=== PATIENT | female | born 1990 | race Caucasian/White ===

== ENCOUNTER → 2020-02-23 14:22 | Outpatient (CLI) | payer BC, SELFPAY ==
--- NOTE | ~2020-02-23 | US_ITS ---
EXAMINATION: US OB <= 14 weeks fetus DATE: 02/23/2020 14:46 INDICATION: First trimester dating TECHNIQUE: Real-time pelvic transabdominal and transvaginal ultrasound was performed. COMPARISON: None. FINDINGS: The uterus measures 11.4 x 6.9 x 6.9 cm. There is an intrauterine gestational sac. A yolk sac is identified. heart motion is identified measuring 175 beats per minute (bpm) by M-mode Do ppler. The crown rump length measures 2.7 cm , which correlates with an estimated gestational a ge of 9 weeks and 4 day(s) (+/-) 6 day(s). The ovaries are not visualized however no adnexal abnormality is seen. There is no free fluid in the pelvis. IMPRESSION: 1. Live intrauterine with an estimated gestational age of 9 weeks and 4 day(s) (+/-) 6 day( s) and an estimated delivery date of 09/23/2020. Reviewed, dictated and finalized at location B. IMPRESSION: 1. Live intrauterine with an estimated gestational age of 9 weeks and 4 day(s) (+/-) 6 day(s) and an estimated delivery date of 09/23/2020.
== END ==
PROVIDERS: Visit Provider Obstetrics & Gynecology Gynecology
DX: Z36.87 Encounter for antenatal screening for uncertain dates (principal); Z3A.09 9 weeks gestation of pregnancy
CPT/HCPCS: 76801

== ENCOUNTER → 2020-04-10 09:49 | Outpatient (CLI) | payer BC, SELFPAY ==
--- NOTE | ~2020-04-10 | US_ITS ---
EXAMINATION: US OB >= 14 weeks Fetus DATE: 04/10/2020 10:15 INDICATION: Assess anatomy during second trimester . TECHNIQUE: Real-time pelvic ultrasound was performed. The interpreting radiologist was not present fo r the study. COMPARISON: 02/23/2020 FINDINGS: There is a single living fetus in vertex presentation. The placenta is posterior. Amniotic fluid vol ume is subjectively normal. heart rate of 152 beats per minute. The following anatomy was identified as normal: Ventricles, choroid plexus, falx and cava septum pellucidum Cerebellum and cisterna magna Nuchal fold Upper lip Spine Diaphragm Stomach Bladder 3 vessel cord and cord insertion Bilateral upper and lower extremities including hands and feet The kidneys and heart are suboptimally visualized with insufficient clarity for assessment. The following biometric data were obtained: BPD: 3.4 cm -> 16 weeks 3 days Head circumference: 12.5 cm -> 16 weeks 2 days Abdominal circumference: 10.9 cm -> 16 weeks 6 days Femur length: 2.0 cm -> 15 weeks 5 days These measurements are concordant. Head circumference to abdominal circumference ratio: 1.14 (normal range 1.06-1.32). Estimated weight: 154 g (+/-) 23 g. or 5 oz. (+/-) 1 oz. IMPRESSION: 1. Single living fetus with variable presentation with heart rate of 152 bpm. 2. Estimated weight is 46th percentile by Hadlock criteria when 09/23/2020 is used as the IMAN b ased upon earliest ultrasound performed at this institution on 02/23/2020. Please correlate with clini cheli information or earlier ultrasounds for most accurate IMAN. 3. Suboptimally visualized heart and kidneys, insufficient for diagnostic assessment. Otherwise chana l survey. Reviewed, dictated and finalized at location B. IMPRESSION: 1. Single living fetus with variable presentation with heart rate of 152 bpm. 2. Estimated weight is 46th percentile by Hadlock criteria when 1 is used as the IMAN based upon earliest ultrasound performed at this instituti on on 02/23/2020. Please correlate with clinical information or earlier ultrasou nds for most accurate IMAN. 3. Suboptimally visualized heart and kidneys, insufficient for diagnostic asses sment. Otherwise normal survey.
== END ==
PROVIDERS: Visit Provider Nurse Practitioner
DX: Z36.9 Encounter for antenatal screening, unspecified (principal); Z3A.00 Weeks of gestation of pregnancy not specified
CPT/HCPCS: 76805

== ENCOUNTER → 2020-05-08 14:25 | Outpatient (CLI) | payer BC, SELFPAY ==
--- NOTE | ~2020-05-08 | US_ITS ---
EXAMINATION: US OB follow up DATE: 05/08/2020 15:03 INDICATION: Follow-up for nonvisualized anatomy TECHNIQUE: Real-time ultrasound of the pelvis was performed. The interpreting radiologist was not pre sent for the study. COMPARISON: None. FINDINGS: There is a single living fetus in transverse lie with head to maternal right. The placenta is labor contract analyst ior with caudal margin 4.3 cm from the internal cervical os. heart rate is 148 beats per minute (bpm). The amniotic fluid volume is subjectively normal. The heart and kidneys which were previously not diagnostically visualized are normal. The following biometric data were obtained: BPD: 4.8 cm -> 20 weeks 3 days Head circumference: 17.6 cm -> 20 weeks 1 days Abdominal circumference: 16.5 cm -> 21 weeks 4 days Femur length: 3.1 cm -> 19 weeks 5 days These measurements are concordant. Head circumference to abdominal circumference ratio: 1.07 (normal range 1.07-1.25). Estimated weight: 365 g (+/-) 55 g. or 13 oz. (+/-) 2 oz. IMPRESSION: 1. Single living fetus in transverse lie with heart rate of 148 bpm. 2. Heart and kidneys are normal. 3. Estimated weight is 64th percentile by Hadlock criteria when 09/23/2020 is used as the estima lauri date of delivery (IMAN). Please correlate with clinical information or earlier ultrasounds for mos t accurate IMAN. Reviewed, dictated and finalized at [facility]. GED CARE MANAGER IMPRESSION: 1. Single living fetus in transverse lie with heart rate of 148 bpm. 2. Heart and kidneys are normal. 3. Estimated weight is 64th percentile by Hadlock criteria when 09/23/2020 is used as the estimated date of delivery (IMAN). Please correlate with clinica l information or earlier ultrasounds for most accurate IMAN.
== END ==
PROVIDERS: Visit Provider Nurse Practitioner
DX: Z36.2 Encounter for other antenatal screening follow-up (principal); Z3A.00 Weeks of gestation of pregnancy not specified
CPT/HCPCS: 76816

== ENCOUNTER 2020-09-16 05:06 | Inpatient (IN) | payer OTHER, SELFPAY ==
[2020-09-16] VITALS (168 sets, daily range): BP systolic 102–157; BP diastolic 60–112; PULSE 48–209; RESP 18; TEMP 36.3–37.3; O2SAT 76–100; BMI 25.9
[2020-09-16 06:47] LABS: Basophils Percent Auto 0.3 % (0.2-1.2); Eosinophils Absolute Auto 0.1 K/mm3 (0-0.3); Eosinophils Percent Auto 1.7 % (0-4.4); Hemoglobin 12.4 g/dL (12.0-15.0); Immature Granulocyte Absolute 0.03 K/mm3 (0.00-0.031); Immature Granulocyte Percent A 0.4 % (0-0.5); Lymphocytes Absolute Auto 1.95 K/mm3 (0.9-3.2); Lymphocytes Percent Auto 25.7 % (18.3-44.2); Mean Corpuscular HGB Conc 34.4 g/dl (32-36); Mean Corpuscular Hemoglobin 30.9 pg (26-34); Mean Corpuscular Volume 89.8 fl (80-100); Mean Platelet Volume 12.2 fl (7.4-10.4); Monocytes Absolute Auto 0.5 K/mm3 (0.1-0.6); Monocytes Percent Auto 6.3 % (2.6-8.5); Neutrophils Percent Auto 65.6 % (45.5-73.1); Platelet Count Result 165 k/mm3 (150-375); Red Blood Count 4.01 M/mm3 (4.2-5.4); White Blood Count 7.6 K/mm3 (4.5-10.0)
[2020-09-16] MEDS: LACTATED RINGERS 1,000 ML 125 ML IV CONT ×3 (06:58→17:16)
[2020-09-16] MEDS: OXYTOCIN 30 UNITS/NS 500 ML 30 UNITS/500 ML BAG IV CONT (07:00)
--- NOTE | 2020-09-16 07:13 | LDADM ---
This patient, Britney Valentino, was admitted to Labor/Delivery/Recovery 105 on 09/16/20 at 05:06. Plans for labor, pain management and were discussed with patient. Patient/family oriented to hospital policies and general routines including ID bracelet, bed and alarms, visiting hours, pain management, procedures, bathroom and other care routines, personal items, smoking policy, room service/diet and guest tray routines, security routines, and visiting hours. Patient/Family are encouraged to report perceived risks to care and to ask questions if they do not understand what they are told or what they should do. See OBIX for further documentation.
--- NOTE | 2020-09-16 09:03 | WPDOBADMIT ---
Obstetrics - Admit Note Admission Note: record reviewed. No pertinent additions to the history and/or any subsequent changes in the physical findings that are not consistent with the expected course of the were found. Additions to the history and/or subsequent changes in the physical findings follow. here for MIL at 39 wks cervix /-2 AROM with clear fluid. FHTs reactive
[2020-09-16] MEDS: fentaNYL CITRATE INJ (*CRX) 100 MCG/2 ML VIAL IV PUSH (09:56)
--- NOTE | 2020-09-16 10:06 | WPDANESEPPF ---
Anes - Initial Pre Proc Eval Date/Time: 09/16/20 10:06 Surgeon: Serena Felix MD Pre Op Diagnosis: Induction Patient Data Age: 30 Gender: F Height: 1.73 m Weight: 77.2 kg Last Vital Signs Temp 37.1 C 09/16/20 09:00 Pulse 63 09/16/20 09:50 BP 119/82 09/16/20 09:50 Pulse Ox 97 09/16/20 10:05 Allergies Allergy/AdvReac Type Severity Reaction Status Date / Time No Known Allergies Allergy Verified 08/24/20 12:27 Home Medications Medication Instructions Recorded Confirmed Type PNV cmb#95-ferrous fumarate-FA 1 tablet PO DAILY 08/24/20 08/24/20 History [] L.rhamn A-191-L.ac-B.davy-B.zuly 1 cap PO DAILY 09/16/20 09/16/20 History [Probiotic] aspirin [Baby Aspirin] 81 mg PO DAILY 09/16/20 09/16/20 History ergocalciferol (vitamin D2) 50,000 unit PO WEEKLY 09/16/20 09/16/20 History magnesium 250 mg PO HS 09/16/20 09/16/20 History Laboratory Tests 09/16/20 09/16/20 09/16/20 06:39 06:39 06:39 WBC 7.6 K/mm3 K/mm3 (4.5-10.0) RBC 4.01 M/mm3 L M/mm3 (4.2-5.4) Hgb 12.4 g/dL g/dL (12.0-15.0) Hct 36.0 % L % (37.0-47.0) MCV 89.8 fl fl (80-100) MCH 30.9 pg pg (26-34) MCHC 34.4 g/dl g/dl (32-36) RDW 12.0 % % (11.5-14.5) Plt Count 165 k/mm3 k/mm3 (150-375) MPV 12.2 fl H fl (7.4-10.4) Immature Gran % (Auto) 0.4 % % (0-0.5) Neut % (Auto) 65.6 % % (45.5-73.1) Lymph % (Auto) 25.7 % % (18.3-44.2) Aurora % (Auto) 6.3 % % (2.6-8.5) Eos % (Auto) 1.7 % % (0-4.4) Baso % (Auto) 0.3 % % (0.2-1.2) Lymph # (Auto) 1.95 K/mm3 K/mm3 (0.9-3.2) Aurora # (Auto) 0.5 K/mm3 K/mm3 (0.1-0.6) Eos # (Auto) 0.1 K/mm3 K/mm3 (0-0.3) Baso # (Auto) 0.0 K/mm3 K/mm3 (0.0-0.1) Abs Immat Gran (auto) 0.03 K/mm3 K/mm3 (0.00-0.031) Absolute Neuts (auto) 5.0 K/mm3 K/mm3 (1.3-6.7) Absolute Nucleated RBC 0.0 K/mm3 K/mm3 (0.0-0.012) Nucleated RBC % 0.0 % % (0.0-0.2) RPR Pending Blood Type A Positive Antibody Screen Negative Patient hx anesthesia problems: none Family hx anesthesia problems: none PMFSH Family History Family History (Updated 09/16/20 @ 07:30 by Baylee Erwin RN) Grandparent Family history of premature coronary heart disease, Onset Age: 80 Cerebrovascular accident Father Atrial fibrillation Mother Colon cancer Breast cancer History of radiofrequency ablation procedure for cardiac arrhythmia Social History Social History Smoking status: Never smoker Second hand tobacco smoke exposure: No Alcohol intake: never Substance use: never Gender identity (if verbalized by the patient): Female Spiritual care concerns: No Anes - Eval Final PreProcedure Day of Procedure 09/16/20 10:06 Patient weight: overweight Heart: regular rate and rhythm Lungs: clear to auscultation and normal air movement Airway: Mallampati scale class II Neurological: alert and oriented Last oral intake: >/= 8 hours ASA classification: II Emergent: no Anesthetic plan: proceed Anesthesia type and monitoring: regional epidural Informed Consent: The patient's anesthetic plan and its attendant risks and benefits were discussed with the patient/family/POA. Questions were solicited and answers provided to the satisfaction of the patient/family/POA.
[2020-09-16] MEDS: ACETAMINOPHEN 500 MG TABLET 1000 MG PO (17:50)
--- NOTE | 2020-09-16 18:57 | PM.OBPRVD ---
OB - Delivery Note Procedure Delivery date: 09/16/20 events: Labor Induction Intrapartal events: None Induction method: AROM and per pitocin protocol Delivery monitor: external FHT and internal uterine Route of delivery: Laceration Description: Perineal - 2nd Degree Delivery repair: vicryl (3-0) Specimen: Yes (placenta with marginal insertion) Quantitative Blood Loss (ml): 125 Anesthesia type: Epidural Disposition: floor Baby Date of : 09/16/20 Weeks of gestation at delivery: 39 gender: Male presentation: vertex position: Right Occiput Anterior Placenta delivery description: Spontaneous cord vessel description: 3 Vessels score one minute: 9 score five minutes: 9
--- NOTE | 2020-09-16 18:59 | P.DS_ITS ---
DS: Admitting Diagnosis Admitting Diagnosis Admitting Diagnosis: IUP 39 wks for MIL DS: Discharge Diagnosis Discharge Diagnosis (1) 39 weeks gestation of : Code(s): Z3A.39 - 39 weeks gestation of Status: Acute (2) (normal spontaneous vaginal delivery): Code(s): O80 - Encounter for full-term uncomplicated delivery Status: Acute OB - DS: Summary OB Procedures : Ultrasound OB Procedures Intrapartum: Spontaneous Vag Delivery OB Procedures: : None Peripartum Data Delivery Method: Natural Vaginal Laceration Description: Perineal - 2nd Degree complications: none Status at Discharge Functional status at discharge: independent ambulation Overall status at discharge: patient is progressing back to baseline Time Spent with Patient Time attestation: Total time spent providing and/or coordinating discharge services: DS: Data Data Completed and Pending Labs on day of discharge: Labs from last 24 hours 09/16/20 09/16/20 09/16/20 06:39 06:39 06:39 WBC 7.6 RBC 4.01 L Hgb 12.4 Hct 36.0 L MCV 89.8 MCH 30.9 MCHC 34.4 RDW 12.0 Plt Count 165 MPV 12.2 H Immature Gran % (Auto) 0.4 Neut % (Auto) 65.6 Lymph % (Auto) 25.7 Thayer % (Auto) 6.3 Eos % (Auto) 1.7 Baso % (Auto) 0.3 Lymph # (Auto) 1.95 Thayer # (Auto) 0.5 Eos # (Auto) 0.1 Baso # (Auto) 0.0 Abs Immat Gran (auto) 0.03 Absolute Neuts (auto) 5.0 Absolute Nucleated RBC 0.0 Nucleated RBC % 0.0 RPR Pending Blood Type A Positive Antibody Screen Negative Discharge Plan Discharge Attending physician on discharge: Sernea Felix Consulting providers: Olive Shields Discharging Clinician: Serena Felix Anticipated Discharge Date/Time: 09/18/20 19:00 Patient Disposition: Home, Self-Care Activity: may shower and pelvic rest Diet: regular Patient Instructions: Antibiotic Form Stand Alone Forms: General Discharge Information Follow-up/Referrals: Serena Felix MD [Physician] - 6 Weeks Discharge Medications: Continued PNV cmb#95-ferrous fumarate-FA [] 28 mg iron- 800 mcg Tablet 1 tablet PO DAILY RF: 0 ergocalciferol (vitamin D2) 1,250 mcg (50,000 unit) capsule 50,000 unit PO WEEKLY RF: 0 Probiotic 20 billion cell Capsule, Sprinkle 1 cap PO DAILY RF: 0 Discontinued aspirin [Baby Aspirin] 81 mg Tablet,Chewable 81 mg PO DAILY RF: 0 magnesium 250 mg Tablet 250 mg PO HS RF: 0 Date of admission: 09/16/20 05:06 Primary Care Provider: PHYSICIAN,SOLDER DEPOSIT OPERATOR Admitting Provider: Serena Felix Attending physician on admission: Serena Felix Condition: Stable
[2020-09-16] MEDS: OXYTOCIN 30 UNITS/NS 500 ML 30 UNITS/500 ML BAG 125 UNITS IV CONT (19:22)
[2020-09-16] MEDS: WITCH HAZEL 40 PADS 1 PAD TOPICAL (19:50)
[2020-09-16] MEDS: IBUPROFEN 600 MG TABLET PO (19:50)
[2020-09-16] MEDS: BENZOCAINE 20% AER SPR (*SP) 56 GM CAN 1 SPRAY TOPICAL (19:50)
--- NOTE | 2020-09-16 22:15 | OBPPTRN ---
Patient transferred to post room # 285 in wheelchair. Support person present. Oriented to unit, room, information board, rooming in, admission packet and security measures. Patient verbalizes understanding.
[2020-09-17 01:16] VITALS: BP 117/78; PULSE 66; RESP 18; TEMP 37.1; O2SAT 96
[2020-09-17 04:04] LABS: Hematocrit 36.1 % (37.0-47.0); Hemoglobin 12.2 g/dL (12.0-15.0)
[2020-09-17] MEDS: IBUPROFEN 600 MG TABLET PO ×2 (05:43→14:01)
[2020-09-17 07:18] LABS: Rapid Plasma Reagin Non-Reactive (NonReactive)
[2020-09-17 07:45] VITALS: BP 110/71; PULSE 66; RESP 16; TEMP 36.8; O2SAT 99
--- NOTE | 2020-09-17 09:15 | PM.OBPNVD ---
OB - PN: Subj Subjective Date/time seen: 09/17/20 09:15 Patient comments: no complaints and pain well controlled baby status: doing well OB - PN: Obj Data Labs CBC & Chem 7: 09/17/20 03:32 Labs: Laboratory Results - last 24 hr 09/16/20 09/17/20 06:39 03:32 Hgb 12.2 Hct 36.1 L RPR Non-reactive OB - PN A/P Plan day: 1 Plan: routine care Time Spent With Patient Time: Total time spent is greater than 50% in coordination of care (as documented) at patient's floor/unit and/or counseling patient: Exam : Bimanual exam- vagina & uterus: other (Uterus firm, nt @U)
[2020-09-17] MEDS: ACETAMINOPHEN 325 MG TABLET 650 MG PO ×2 (09:18→17:25)
[2020-09-17] MEDS: DOCUSATE SODIUM 100 MG CAPSULE PO ×2 (09:18→17:25)
[2020-09-17] MEDS: MULTIVIT/MIN/PREN/FOL AC/IRON TABLET 1 TAB PO (09:18)
[2020-09-17 10:00] VITALS: PULSE 66; RESP 16; O2SAT 99
--- NOTE | 2020-09-17 10:30 | PC.NURSE ---
Mother called out for assist with feeding. Consulted with patient, mother reports has fed well since . Mother reports sleepy after circumcision. Mother denies difficulties or discomfort with previous feedings. Reviewed nipple care of lanolin. Reviewed infant feeding cues, frequencies, duration of feedings, feeding elimination flow sheet, and signs of adequate intake. Demonstrated stimulation techniques to wake for feeding. Assisted with infant to breast. Reviewed positioning/alignment in cross cradle, holding breast in U hold and guided asymmetrical latch on. was able to latch within a few attempts. Infant nursed eagerly, with steady draws and frequent swallowing noted. Reviewed signs of a correct latch, effective nursing and suck swallow ratio. Infant was able to maintain latch. Infant sleepy requiring constant stimulation to nurse effectively, , infant had slipped to shallow latch. Demonstrated how to adjust latch more deeply while feeding. Mother quickly reports she can feel is latched more deeply and has minimal tenderness. Suggested to stimulate while feeding to keep awake and nursing effectively for increased stimulation and increased intake. Instructed mother to call out for RN assistance if she is unable to latch for feeding or she has discomfort with nursing.
--- NOTE | 2020-09-17 11:32 | WPDANLDPN2 ---
Anes-Prog Note L&D Date/Time: 09/17/20 11:32 Comfortable throughout: labor and delivery Neuraxial method: epidural Epidural/Spinal procedure site: clean & non-tender Neuro status: Neuro function grossly intact. Cardiovascular status: normal Respiratory status: normal Airway patency: baseline Mental status: baseline Post-Op hydration status: normal Vital Signs: Last Vital Signs Temp 36.8 C 09/17/20 07:45 Pulse 66 09/17/20 10:00 Resp 16 09/17/20 10:00 BP 110/71 09/17/20 07:45 Pulse Ox 99 09/17/20 10:00 Pain score (VAS): 0 I/O: Intake & Output 09/16/20 09/17/20 09/17/20 23:59 07:59 15:59 Intake Total 1000 Balance 1000 Post-procedural complaints: none Patient feedback: Patient satisfied with anesthetic care.
[2020-09-17 12:30] VITALS: BP 102/68; PULSE 60; RESP 18; TEMP 36.8; O2SAT 98
[2020-09-17 17:15] VITALS: PULSE 60; RESP 18; O2SAT 98
[2020-09-17 20:15] VITALS: BP 104/70; PULSE 66; RESP 18; TEMP 36.6; O2SAT 97
--- NOTE | 2020-09-17 20:23 | OBPPTRN ---
Patient transferred to post room #279 via wheelchair with baby in bassinet. Support person present. Oriented to unit, room, information board, rooming in, admission packet and security measures. Patient verbalizes understanding.
[2020-09-18] MEDS: ACETAMINOPHEN 325 MG TABLET 650 MG PO ×2 (01:11→08:58)
--- NOTE | 2020-09-18 07:38 | PM.OBPNVD ---
OB - PN: Subj Subjective Date/time seen: 09/18/20 07:38 Patient comments: no complaints and pain well controlled baby status: doing well OB - PN: Obj Data Labs CBC & Chem 7: 09/17/20 03:32 OB - PN A/P Plan day: 2 Plan: routine care, discharge home, follow up 6 weeks and other (condoms for bc) Time Spent With Patient Time: Total time spent is greater than 50% in coordination of care (as documented) at patient's floor/unit and/or counseling patient: Exam : Bimanual exam- vagina & uterus: other (Uterus firm, nt @U)
[2020-09-18 08:15] VITALS: BP 113/85; PULSE 63; RESP 16; TEMP 36.9; O2SAT 96
[2020-09-18] MEDS: MULTIVIT/MIN/PREN/FOL AC/IRON TABLET 1 TAB PO (08:58)
[2020-09-18] MEDS: DOCUSATE SODIUM 100 MG CAPSULE PO (08:58)
[2020-09-18] MEDS: WITCH HAZEL 40 PADS 1 PAD TOPICAL (08:59)
[2020-09-18] MEDS: BENZOCAINE 20% AER SPR (*SP) 56 GM CAN 1 SPRAY TOPICAL (08:59)
[2020-09-18 09:08] VITALS: PULSE 66; RESP 18; O2SAT 97
--- NOTE | 2020-09-18 09:45 | PC.NURSE ---
Mother called out for assist with feeding. Mother reports nipple discomfort with latch that lessens during the feeding. Reviewed nipple care of lanolin, warm compresses several times per day and gel pads as needed. Reviewed infant feeding cues, frequencies, duration of feedings, feeding elimination flow sheet, and signs of adequate intake. Demonstrated stimulation techniques to wake for feeding. Assisted with infant to breast. Reviewed positioning/alignment in cross cradle, holding breast in U hold and guided asymmetrical latch on. Mother quickly switches to cradle, advised to continue to hold breast during entire feeding to assist infant with maintaining deep latch. was able to latch within a few attempts. Infant nursed eagerly, with steady draws and frequent swallowing noted. Reviewed signs of a correct latch, effective nursing and suck swallow ratio. Infant was able to maintain latch. Mother reported tenderness at times, had slipped to shallow latch. Demonstrated how to adjust latch more deeply while feeding. Mother quickly reports she can feel is latched more deeply and has minimal tenderness. Suggested to stimulate while feeding to keep awake and nursing effectively for increased stimulation and increased intake. Instructed mother to call out for RN assistance if she is unable to latch for feeding or she has discomfort with nursing. Mother plans on discharge today. Mother able to independently latch with appropriate positioning/alignment. She reports slight nipple discomfort ( working with deeper latch), is feeding as required and waking to feed if needed. effective feeding as required since , and is currently meeting outcomes for weight, output, jaundice and feeding frequencies. Mother states she feels confident to continue effective at home. Reviewed transition to breast milk, signs of adequate intake, and engorgement/relief. Instructed to call ICP if intake/output less than required. Reviewed regular medications mother is taking. Information provided per Janae. Reviewed community resources on the [employer] website and in the Mom/Baby guide. Information on outpatient services provided. Mother has no further questions at this time.
[2020-09-18] MEDS: IBUPROFEN 600 MG TABLET PO (11:36)
[2020-09-19 11:25] VITALS: BP 107/76; PULSE 72; RESP 20; TEMP 37.2; O2SAT 100
== END 2020-09-18 12:30 | disposition home or self-care (01) | DRG 807 ==
LOC: ANHLDR 19:00 → ANHOB2 21:59
PROVIDERS: Admitting Provider Obstetrics & Gynecology Gynecology; Visit Provider Obstetrics & Gynecology Gynecology
DX: O99.52 Diseases of the respiratory system complicating childbirth (principal); Z37.0 Single live birth; Z3A.39 39 weeks gestation of pregnancy; J45.909 Unspecified asthma, uncomplicated; O36.8330 Maternal care for abnormalities of the fetal heart rate or rhythm, third trimester, not applicable or unspecified; O70.1 Second degree perineal laceration during delivery
CPT/HCPCS: 36415; 85014; 85018; 85025; 86592; 86850; 86900; 86901; 88307; A9270; J2590; J2795; J3010; J7120

== ENCOUNTER → 2022-04-21 10:06 | Outpatient (CLI) | payer OTHER, SELFPAY ==
--- NOTE | ~2022-04-21 | US_ITS ---
EXAMINATION: US OB <= 14 weeks fetus DATE: 04/21/2022 10:25 INDICATION: with uncertain dates. TECHNIQUE: Real-time transabdominal pelvic ultrasound was performed. COMPARISON: None. FINDINGS: The uterus measures 10.2 x 6.9 x 8.5 cm. There is an intrauterine gestational sac. A yolk sac is iden tified. The crown rump length measures 2.1 cm, which correlates with an estimated gestational age of 8 weeks and 5 day(s) (+/-) 5 day(s). heart motion is identified measuring 154 beats per minute (bpm) by M-mode Doppler. The right ovary measures 3.4 x 2.9 x 3.1 cm. The left ovary is not vi sualized. There is no free fluid in the pelvis. IMPRESSION: 1. Single living intrauterine gestation with estimated date delivery of 11/26/2022. Reviewed, dictated and finalized at location A. ATION AGENT IMPRESSION: 1. Single living intrauterine gestation with estimated date delivery of 023.
== END ==
PROVIDERS: PCP Advanced Practice Midwife; Visit Provider Advanced Practice Midwife
DX: O36.80X0 Pregnancy with inconclusive fetal viability, not applicable or unspecified (principal); Z3A.00 Weeks of gestation of pregnancy not specified
CPT/HCPCS: 76801

== ENCOUNTER → 2022-07-04 11:18 | Outpatient (CLI) | payer OTHER, SELFPAY ==
--- NOTE | ~2022-07-04 | US_ITS ---
EXAMINATION: US OB /maternal detail DATE: 07/04/2022 11:59 INDICATION: Maternal care for excessive growth. Third trimester. TECHNIQUE: Real-time ultrasound of the pelvis was performed. COMPARISON: Ultrasound 04/21/2022 FINDINGS: There is a single living fetus in breech presentation. The placenta is anterior, 8.1 cm from the cer vix. heart rate is 141 beats per minute (bpm). The cervical length is 3.1 cm on transabdominal images. The amniotic fluid volume is subjectively normal. The following biometric data were obtained: Biparietal diameter (BPD): 4.8 cm; head circumference (HC): 17.5 cm; abdominal circumference (AC): 14 .6 cm; femur length (FL): 3.0 cm. These measurements are concordant. Estimated weight is 302 g +/- 45 g, which correlates with the 65th percentile when 11/26/22 is u sed as estimated date of delivery. As single measurements, these parameters are each equal to the following estimated gestational ages: BPD: 20 weeks 3 days. HC: 20 weeks 0 days. AC: 19 weeks 6 days. FL: 19 weeks 1 days. estimated gestational age based solely on measurements from this exam is 19 weeks 6 days +/- 1 weeks 3 days. The cerebral ventricles, cerebellum, cisterna magna, nuchal fold, and visualized portions of the spin e are normal. The heart is normal. The diaphragm, stomach, kidneys, and bladder are normal. There are two umbilical arteries to yield a 3-vessel cord. The cord insertion is normal. IMPRESSION: 1. Single living fetus in breech presentation. 2. Estimated weight is 302 g +/- 45 g, which correlates with the 65th percentile when 11/26/22 is used as estimated date of delivery. This date was set by ultrasound on 04/21/2022. 3. Normal anatomic survey. Reviewed, dictated and finalized at location A. HOUSE SHIPPING CLERK IMPRESSION: 1. Single living fetus in breech presentation. 2. Estimated weight is 302 g +/- 45 g, which correlates with the 65th pe rcentile when 11/26/22 is used as estimated date of delivery. This date was set by ultrasound on 04/21/2022. 3. Normal anatomic survey.
== END ==
PROVIDERS: PCP Obstetrics & Gynecology Gynecology; Visit Provider Obstetrics & Gynecology Gynecology
DX: O36.63X0 Maternal care for excessive fetal growth, third trimester, not applicable or unspecified (principal); Z3A.19 19 weeks gestation of pregnancy
CPT/HCPCS: 76805

== ENCOUNTER 2022-11-16 05:12 | Observation (INO) | payer OTHER, SELFPAY ==
[2022-11-16 05:22] VITALS: BP 110/74; PULSE 59
[2022-11-16 05:30] VITALS: BP 109/68; PULSE 59
[2022-11-16 05:45] VITALS: BP 100/71; PULSE 71
[2022-11-16 07:20] VITALS: BP 109/69; PULSE 67
--- NOTE | 2022-11-16 08:19 | OBADM ---
This patient, Britney Valentino, admitted to the OB room Labor/Delivery/Recovery 105 for observation. Patient/family oriented to hospital policies and general routines including ID bracelet, bed and alarms, visiting hours, pain management, procedures, bathroom and other care routines, personal items, smoking policy, room service/diet, and visiting hours. Patient/Family are encouraged to report perceived risks to care and to ask questions if they do not understand what they are told or what they should do.
[2022-11-16 08:20] VITALS: BMI 25.1
--- NOTE | 2022-12-12 09:50 | PM.OBTRLD ---
OB - Triage/Final Diagnosis Visit Information Comments/Additional reasons for admission: I have assessed the risk for this patient, Britney Valentino, and determined that she would benefit from observation care. Final Diagnosis (1) False labor: Code(s): O47.9 - False labor, unspecified Status: Acute
== END 2022-11-16 08:35 | disposition home or self-care (01) ==
PROVIDERS: Admitting Provider Obstetrics & Gynecology; Visit Provider Obstetrics & Gynecology
DX: O47.9 False labor, unspecified (principal); Z3A.00 Weeks of gestation of pregnancy not specified
CPT/HCPCS: 84112; G0378; G0379

== ENCOUNTER 2022-11-24 19:57 | Inpatient (IN) | payer OTHER, SELFPAY ==
[2022-11-24 21:44] VITALS: BMI 25.2
--- NOTE | 2022-11-24 21:45 | LDADM ---
This patient, Britney Valentino, was admitted to Labor/Delivery/Recovery 105 on 11/24/22 at 19:57. Plans for labor, pain management and were discussed with patient. Patient/family oriented to hospital policies and general routines including ID bracelet, bed and alarms, visiting hours, pain management, procedures, bathroom and other care routines, personal items, smoking policy, room service/diet and guest tray routines, security routines, and visiting hours. Patient/Family are encouraged to report perceived risks to care and to ask questions if they do not understand what they are told or what they should do. See OBIX for further documentation.
[2022-11-24 21:47] LABS: Basophils Absolute Auto 0.1 K/mm3 (0.0-0.1); Basophils Percent Auto 0.5 % (0.2-1.2); Eosinophils Absolute Auto 0.1 K/mm3 (0-0.3); Eosinophils Percent Auto 1.3 % (0-4.4); Hematocrit 35.7 % (37.0-47.0); Hemoglobin 12.1 g/dL (12.0-15.0); Immature Granulocyte Absolute 0.05 K/mm3 (0.00-0.031); Immature Granulocyte Percent A 0.5 % (0-0.5); Lymphocytes Absolute Auto 2.52 K/mm3 (0.9-3.2); Mean Corpuscular HGB Conc 33.9 g/dl (32-36); Mean Corpuscular Hemoglobin 30.3 pg (26-34); Mean Corpuscular Volume 89.5 fl (80-100); Mean Platelet Volume 11.4 fl (7.4-10.4); Monocytes Absolute Auto 0.7 K/mm3 (0.1-0.6); Monocytes Percent Auto 6.7 % (2.6-8.5); Platelet Count Result 211 k/mm3 (150-375); Red Blood Count 3.99 M/mm3 (4.2-5.4); Red Cell Distribution Width 12.7 % (11.5-14.5); White Blood Count 10.5 K/mm3 (4.5-10.0)
--- NOTE | 2022-11-24 21:53 | WPDOBADMIT ---
Obstetrics - Admit Note Admission Note: record reviewed. No pertinent additions to the history and/or any subsequent changes in the physical findings that are not consistent with the expected course of the were found. Additions to the history and/or subsequent changes in the physical findings follow. None.
--- NOTE | 2022-11-24 21:53 | PM.OBPRVD ---
OB - Delivery Note Procedure Delivery date: 11/25/22 Procedure: Induction method: None Delivery augmentation: Rupture of Membranes Delivery monitor: External FHT and External Uterine Route of delivery: Episiotomy description: None Laceration Description: Vaginal (1st degree) Delivery repair: vicryl Specimen: No Quantitative Blood Loss (ml): 150 Anesthesia type: Epidural Disposition: Floor Narrative: Pt arrived in spontaneous labor at term. She received an epidural for analgesia and was allowed to rest. Amniotomy was offered and she consented. She made change to complete dilation and began pushing with contractions. She quickly brought the head to a full crown and with the next push delivered over an intact perineum. There was excellent restitution followed by smooth delivery of the anterior and posterior shoulders as well as remainder of the . The infant was placed on the maternal abdomen and dried and stimulated by nursery staff. After 1 minute of life the cord was doubly clamped and cut. Cord gases, cord blood, and cord segment were obtained. A first-degree vaginal laceration was repaired in usual fashion. There was excellent hemostasis and all delivery counts were correct. Mother and baby skin to skin in the delivery room. [place] Baby Date of : 11/25/22 Time of : 12:37 Weeks of gestation at delivery: 39 gender: Male Weight (pounds): 8 Weight (ounces): 0 presentation: vertex position: Left Occiput Anterior Placenta delivery description: Spontaneous Cord Vessel Description: 3 Vessels, Clamped/Cut and Delayed Cord Clamping score one minute: 9 score five minutes: 9
--- NOTE | 2022-11-24 21:54 | PM.OBDSVD ---
DS: Admitting Diagnosis Discharge Date 11/27/2022 Admitting Diagnosis /labor DS: Discharge Diagnosis Discharge Diagnosis (1) (normal spontaneous vaginal delivery): Code(s): O80 - Encounter for full-term uncomplicated delivery Status: Acute (2) Patient is a currently breast-feeding mother: Code(s): Z39.1 - Encounter for care and examination of lactating mother Status: Acute OB - DS: Summary Hospital Course Hospital Course: Uncomplicated OB Procedures : Ultrasound OB Procedures Intrapartum: Spontaneous Vag Delivery OB Procedures: : None Peripartum Data Delivery Method: Natural Vaginal Laceration Description: Vaginal - 1st Degree Episiotomy description: None complications: none Time Spent with Patient Time attestation: Total time spent providing and/or coordinating discharge services: DS: Data Data Completed and Pending Labs on day of discharge: Labs from last 24 hours 11/24/22 21:41 WBC 10.5 H RBC 3.99 L Hgb 12.1 Hct 35.7 L MCV 89.5 MCH 30.3 MCHC 33.9 RDW 12.7 Plt Count 211 MPV 11.4 H Immature Gran % (Auto) 0.5 Neut % (Auto) 67.0 Lymph % (Auto) 24.0 Barron % (Auto) 6.7 Eos % (Auto) 1.3 Baso % (Auto) 0.5 Lymph # (Auto) 2.52 Barron # (Auto) 0.7 H Eos # (Auto) 0.1 Baso # (Auto) 0.1 Abs Immat Gran (auto) 0.05 H Absolute Neuts (auto) 7.0 H Absolute Nucleated RBC 0.0 Nucleated RBC % 0.0 RPR Pending Discharge Plan Discharge Attending physician on discharge: Serena Felix Consulting providers: Day Ttutle; Steven Alvarez Discharging Clinician: Day Tuttle Patient Disposition: Home, Self-Care Activity: may shower Diet: as tolerated Discharge Instructions: Education: Mom and Baby Guide Given to: Mother Follow-Up: Call your delivering provider's office for an appointment to be seen in: 6 Weeks [facility]. Appointment Date/Time: November 28, 2022 at 10:00 am What to expect at your follow-up visit: Blood Pressure Check Call [phone] if you are unable to keep your appointment time. BREAST CARE: * Wear a snug supportive bra. * For engorgement discomfort: Breast Feeding: * Apply warm moist washcloths * Express milk as needed to relieve engorgement * Wear loose clothing Bottle Feeding: * May apply ice packs * For sore nipples: * Identify correct latch-on * Apply warm moist washcloths before and after nursing * Air dry nipples after nursing * May apply Lansinoh cream to nipples PERINEAL CARE: * Until bleeding stops, use your abbey bottle after urinating * Change your pad frequently throughout the day * You may take sitz baths several times a day (fill your bathtub with warm water and soak for 20 minutes.) Do NOT bathe in the water * No tub baths until seen by your physician - You may shower ACTIVITY: * Rest as much as possible. * Do not exercise or lift anything heavier than your baby (such as laundry or other children.) * Avoid stairs or driving as much as possible. * Do not put anything into the vagina. No douching, tampons, or sexual activity until seen by physician. NOTIFY PHYSICIAN IF YOU HAVE ANY QUESTIONS OR IF ANY OF THE FOLLOWING SYMPTOMS OCCUR: * If your perineum becomes red, swollen, or more painful than what you have experienced in the hospital. * If your vaginal bleeding becomes foul smelling. * If your vaginal bleeding becomes more heavy than a period or if your bleeding changes from pink to bright red. However, you may pass an occasional walnut-sized clot once or twice for the first week . * If you experience a sharp, shooting pain in you calves. * If you discover a hard, reddened area on your breast or if you experience flu-like symptoms. * If you have a fever of 1
[2022-11-24 22:45] VITALS: RESP 16; TEMP 36.4
[2022-11-24 22:47] VITALS: BP 105/73; PULSE 60
[2022-11-24] MEDS: LACTATED RINGERS 1,000 ML 125 ML IV CONT (23:10)
--- NOTE | 2022-11-24 23:49 | WPDANESEPP ---
Anes - Eval Pre Procedure Procedure: Labor epidural Date/Time: 11/24/22 23:49 Surgeon: Isidro Preop Diagnosis: Abdominal pain with contractions Pre Op Diagnosis: Contractions Patient Data Age: 32 Gender: F Height: 1.73 m Weight: 75.23 kg Last Vital Signs Temp 97.5 F L 11/24/22 22:45 Pulse 60 11/24/22 22:47 Resp 16 11/24/22 22:45 BP 105/73 11/24/22 22:47 O2 Del Method Room Air 11/24/22 21:44 Allergies Allergy/AdvReac Type Severity Reaction Status Date / Time No Known Allergies Allergy Verified 11/04/22 15:20 Home Medications Medication Instructions Recorded Confirmed Type vit no.95-ferrous 1 tablet PO DAILY 08/24/20 11/24/22 History fumarate 28 mg-folic acid 800 mcg tablet () L.acidophil,rhamnosus-B.breve,longum 1 cap PO DAILY 09/16/20 11/24/22 History 20 billion cell sprinkle capsule (Probiotic) ergocalciferol (vitamin D2) 1,250 50,000 unit PO WEEKLY 09/16/20 11/24/22 History mcg (50,000 unit) capsule Baby Aspirin 81 mg PO DAILY 11/04/22 11/24/22 History Laboratory Tests 11/24/22 21:41 WBC 10.5 H K/mm3 (4.5-10.0) RBC 3.99 L M/mm3 (4.2-5.4) Hgb 12.1 g/dL (12.0-15.0) Hct 35.7 L % (37.0-47.0) MCV 89.5 fl (80-100) MCH 30.3 pg (26-34) MCHC 33.9 g/dl (32-36) RDW 12.7 % (11.5-14.5) Plt Count 211 k/mm3 (150-375) MPV 11.4 H fl (7.4-10.4) Immature Gran % (Auto) 0.5 % (0-0.5) Neut % (Auto) 67.0 % (45.5-73.1) Lymph % (Auto) 24.0 % (18.3-44.2) Bradley % (Auto) 6.7 % (2.6-8.5) Eos % (Auto) 1.3 % (0-4.4) Baso % (Auto) 0.5 % (0.2-1.2) Lymph # (Auto) 2.52 K/mm3 (0.9-3.2) Bradley # (Auto) 0.7 H K/mm3 (0.1-0.6) Eos # (Auto) 0.1 K/mm3 (0-0.3) Baso # (Auto) 0.1 K/mm3 (0.0-0.1) Abs Immat Gran (auto) 0.05 H K/mm3 (0.00-0.031) Absolute Neuts (auto) 7.0 H K/mm3 (1.3-6.7) Absolute Nucleated RBC 0.0 K/mm3 (0.0-0.012) Nucleated RBC % 0.0 % (0.0-0.2) RPR Pending Blood Type A Positive Antibody Screen Negative : gestational age HCG: positive Patient hx anesthesia problems: none Family hx anesthesia problems: none Results Review: All pre-operative results and documents have been reviewed as part of the pre-operative evaluation. [facility] Past Medical History Medical History (Updated 11/24/22 @ 23:50 by Steven Alvarez CRNA) Anxiety Overweight (BMI 25.0-29.9) Family History Family History Grandparent Family history of premature coronary heart disease, Onset Age: 80 Cerebrovascular accident Father Atrial fibrillation Mother Colon cancer Breast cancer History of radiofrequency ablation procedure for cardiac arrhythmia Social History Social History Smoking status: Never smoker Second hand tobacco smoke exposure: No Alcohol intake: never Substance use: never Lack of Transportation: No Lack of Food: Never True Current Housing: I Have Housing Concerned About Future Housing: No Difficulty Paying Gas/Electric Bills: No Difficulty Paying for Meds: No Currently Unemployed: No Education: Bachelor's Degree Difficulty w/ Childcare or Family Care: No Gender identity (if verbalized by the patient): Female Spiritual care concerns: No Exam Day of Procedure 11/24/22 23:49 Patient weight: overweight
[2022-11-24 23:55] VITALS: PULSE 72; O2SAT 100
[2022-11-24 23:57] VITALS: BP 130/80; PULSE 71
[2022-11-25] VITALS (205 sets, daily range): BP systolic 89–133; BP diastolic 56–101; PULSE 43–116; RESP 16–17; TEMP 36.1–36.9; O2SAT 95–100
[2022-11-25] MEDS: LACTATED RINGERS 1,000 ML 125 ML IV CONT ×2 (00:03→01:11)
[2022-11-25] MEDS: ONDANSETRON INJ 4 MG/2 ML VIAL IV PUSH ×2 (03:00→08:00)
[2022-11-25 06:43] LABS: Rapid Plasma Reagin Non-Reactive (NonReactive)
--- NOTE | 2022-11-25 07:44 | PM.OBPNLAB ---
Pain Control Date/time seen: 11/25/22 07:44 Pain control: epidural Pelvic Exam Dilation (cm): 7 Effacement (%): 80 station: -2 Amniotic membrane status: Ruptured (AROM with clear fluid) Contractions Contraction pattern: Regular Status status: Category l Assessment and Plan Assessment: active labor Plan: begin patient augmentation
[2022-11-25] MEDS: OXYTOCIN 30 UNITS/NS 500 ML 30 UNITS/500 ML BAG IV CONT (09:32)
[2022-11-25] MEDS: OXYTOCIN 30 UNITS/NS 500 ML 30 UNITS/500 ML BAG 125 UNITS IV CONT (13:45)
--- NOTE | 2022-11-25 15:04 | PC.NURSE ---
Patient transferred to post room #282 via wheelchair. Support person present. Oriented to unit, room, information board, rooming in, admission packet and security measures. Patient verbalizes understanding.
[2022-11-25] MEDS: IBUPROFEN 600 MG TABLET PO ×2 (16:29→22:05)
[2022-11-25] MEDS: DOCUSATE SODIUM 100 MG CAPSULE PO (16:29)
[2022-11-25] MEDS: WITCH HAZEL 40 PADS 1 PAD TOPICAL (16:30)
[2022-11-25] MEDS: BENZOCAINE 20% AER SPR (*SP) 56 GM CAN 1 SPRAY TOPICAL (16:30)
[2022-11-26 00:23] VITALS: BP 122/69; PULSE 51; RESP 19; TEMP 36.5; O2SAT 100
[2022-11-26 19:58] VITALS: BP 96/56; PULSE 55; RESP 17; TEMP 36.8; O2SAT 99
[2022-11-27] MEDS: IBUPROFEN 600 MG TABLET PO ×2 (02:15→08:18)
--- NOTE | 2022-11-27 07:45 | PC.NURSE ---
PT introductions made and plan of care discussed per post , pain management, breast feeding, daily care activities and pending discharge to home. PT and spouse both recipients of such instructions and no barriers to learning identified. PT received discharge instructions per protocol and verbalized understanding. PT received such instructions per one to one discussion, mom baby care guide and demonstrations this shift. PT verbalized understanding of such care.
--- NOTE | 2022-11-27 07:57 | PM.OBPNVD ---
OB - PN: Subj Subjective Date/time seen: 11/27/22 07:57 Patient comments: no complaints and pain well controlled baby status: doing well OB - PN: Obj Data Labs 11/24/22 21:41 OB - PN A/P Plan day: 2 Plan: routine care, discharge home, follow up 6 weeks and other (plans condoms until vasectomy) Time Spent With Patient Time: Total time spent is greater than 50% in coordination of care (as documented) at patient's floor/unit and/or counseling patient: Exam : Bimanual exam- vagina & uterus: other (Uterus firm, nt @U)
[2022-11-27 08:05] VITALS: BP 105/57; PULSE 58; RESP 18; TEMP 37.2; O2SAT 99
[2022-11-27 08:15] VITALS: PULSE 58; RESP 18; O2SAT 99
[2022-11-27] MEDS: DOCUSATE SODIUM 100 MG CAPSULE PO (08:19)
[2022-11-27] MEDS: MULTIVIT/MIN/PREN/FOL AC/IRON TABLET 1 TAB PO (08:19)
[2022-11-27 10:47] LABS: Hematocrit 32.2 % (37.0-47.0); Hemoglobin 10.5 g/dL (12.0-15.0); Immature Granulocyte Percent A 0.7 % (0-0.5); Mean Corpuscular HGB Conc 32.6 g/dl (32-36); Mean Corpuscular Hemoglobin 29.9 pg (26-34); Mean Corpuscular Volume 91.7 fl (80-100); Mean Platelet Volume 12.8 fl (7.4-10.4); Platelet Count Result 164 k/mm3 (150-375); Red Blood Count 3.51 M/mm3 (4.2-5.4); White Blood Count 10.8 K/mm3 (4.5-10.0)
[2022-11-27 10:48] LABS: Basophils Absolute Auto 0.1 K/mm3 (0.0-0.1); Basophils Percent Auto 0.5 % (0.2-1.2); Eosinophils Absolute Auto 0.2 K/mm3 (0-0.3); Eosinophils Percent Auto 1.6 % (0-4.4); Immature Granulocyte Absolute 0.08 K/mm3 (0.00-0.031); Lymphocytes Absolute Auto 2.95 K/mm3 (0.9-3.2); Lymphocytes Percent Auto 27.4 % (18.3-44.2); Monocytes Absolute Auto 0.6 K/mm3 (0.1-0.6); Monocytes Percent Auto 5.6 % (2.6-8.5); Neutrophils Absolute Auto 6.9 K/mm3 (1.3-6.7); Neutrophils Percent Auto 64.2 % (45.5-73.1)
--- NOTE | 2022-11-27 11:30 | PC.NURSE ---
PT received discharge instructions per protocol and verbalized understanding. Patient was given the opportunity to view the discharge video Mother & Baby Care, The First Two Weeks and to ask questions. Patient declined viewing the video and has been given the mother/baby guide for home reference.
--- NOTE | 2022-11-27 11:55 | PC.NURSE ---
PT discharged to home ambulatory accompanied spouse and infant and taken to waiting car. follow up appts confirmed
--- NOTE | 2022-11-27 12:58 | PC.NURSE ---
[phone] Introductions made to mother to assess needs. Mother led the conversation with her experience and plan to feed her infant so far and her ability to independently latch infant optimally with soreness initially, then subsides. Mother has a history of 3 months with her first child, then states she was unable to keep up the milk supply. Mother is feeding appropriately for growth of infant and understands stimulating to eat if needed. Infant has had adequate feedings in the last 24 hours meets the outcomes for weight, output and jaundice at this time. Mother states she is confident to continue effectively breastfeed her at home, when to call for assistance and denies any additional assistance or education at this time. Offered mother an opportunity to call for a latch assessment for the next feeding if there's pain. Reinforced understanding of milk production, transition of milk, signs of adequate intake, transition of stool, prevention/relief of engorgement, responsive watching for feeding cues, the different methods of stimulating to breastfeed 2-3 hours after the start of the last feeding, and when to call a provider using the resource of the mom and baby guide. Mother voiced understanding of the education shared.
[2022-11-28 10:27] VITALS: BP 116/76; PULSE 72; RESP 18; TEMP 36.6; O2SAT 99
== END 2022-11-27 11:55 | disposition home or self-care (01) | DRG 807 ==
LOC: ANHLDR 21:55 → ANHOB2 11-25 15:23
PROVIDERS: Advanced Practice Midwife; Admitting Provider Obstetrics & Gynecology Gynecology; Visit Provider Obstetrics & Gynecology Gynecology
DX: O70.0 First degree perineal laceration during delivery (principal); Z37.0 Single live birth; Z3A.39 39 weeks gestation of pregnancy
CPT/HCPCS: 36415; 85025; 86592; 86850; 86900; 86901; A9270; J2405; J2590; J2795; J7120